=== PATIENT | male | born 1995 | race Caucasian/White ===

== ENCOUNTER 2022-12-04 09:27 | Emergency (ER) | payer OTHER ==
[2022-12-04 09:32] VITALS: TEMP 98.1
--- NOTE | 2022-12-04 09:49 | ED ---
Lower Extremity Injury HPI - General Chief Complaint: Extremity Injury, Lower Stated Complaint: R foot injury Time Seen by Provider: 12/04/22 09:34 Source: patient, RN notes reviewed, old records reviewed Mode of arrival: ambulatory Limitations: no limitations - History of Present Illness Initial Comments: Nontoxic-appearing 27-year-old male presents to the emergency room with complaints of right foot pain for the past 2 months. Patient states that he kicked a metal pole playing ball with his kids 2 months ago. He has had pain since. He has not sought treatment until today. States increased pain with walking or standing at work. No medical history. MD Complaint: foot injury (right) -: month(s) (2) Severity scale (1-10): 8 Worsens With: weight bearing, other (walking) - Related Data Allergies Allergy/AdvReac Type Severity Reaction Status Date / Time No Known Allergies Allergy Verified 12/04/22 09:30 Review of Systems ROS Statement: Those systems with pertinent positive or pertinent negative responses have been documented in the HPI. ROS Other: All systems not noted in ROS Statement are negative. Past Medical History Past Medical History: No Reported History History of Any Multi-Drug Resistant Organisms: None Reported Past Surgical History: No Surgical Hx Reported Past Psychological History: No Psychological Hx Reported Smoking Status: Never smoker Past Alcohol Use History: Rare Past Drug Use History: None Reported General Exam Limitations: no limitations General appearance: alert, in no apparent distress Head exam: Present: atraumatic Eye exam: Present: normal appearance. Absent: scleral icterus, conjunctival injection, periorbital swelling Respiratory exam: Absent: respiratory distress, accessory muscle use Cardiovascular Exam: Present: regular rate Right Ankle exam: Present: full ROM. Absent: tenderness, swelling Foot/Toe exam: Present: full ROM, tenderness (Base of second and third digits midfoot). Absent: swelling, abrasion, laceration, ecchymosis, deformity, crepitus, dislocation, erythema, calcaneal tenderness, tenderness at base of 5th metatarsal Neurovascular tendon exam: Present: no vascular compromise. Absent: abnormal cap refill, extremity cold to touch, pallor, foot drop Neurological exam: Present: alert, oriented X3 Psychiatric exam: Present: normal affect, normal mood Skin exam: Present: warm, dry, normal color. Absent: cyanosis, diaphoretic, petechiae, pallor Course Vital Signs 12/04/22 12/04/22 09:30 10:17 Temperature 98.1 F Pulse Rate 79 75 Respiratory 16 18 Rate Blood Pressure 143/86 109/65 O2 Sat by Pulse 96 98 Oximetry Medical Decision Making - Medical Decision Making Was pt. sent in by a medical professional or institution (ALFREDO Saenz, WATER SAFETY TEACHER, urgent care, hospital, or residential...) When possible be specific @ -No Did you speak to anyone other than the patient for history (EMS, parent, family, police, friend...)? What history was obtained from this source @ -No Did you review nursing and triage notes (agree or disagree)? Why? @ -I reviewed and agree with nursing and triage notes Were old charts reviewed (outside hosp., previous admission, EMS record, old EKG, old radiological studies, urgent care reports/EKG's, residential records)? Report findings @ -No old charts were reviewed Differential Diagnosis (chest pain, altered mental status, abdominal pain women, abdominal pain men, vaginal bleeding, weakness, fever, dyspnea, syncope, headache, dizziness, GI bleed, back pain, seizure, CVA, palpatations, mental health, musculoskeletal)? @ -Contusion, fracture, cellulitis, foreign body EKG interpreted by me (3pts min.). @ -n/a X-rays interpreted by me (1pt min.). @ -yes X-ray of the right foot interpreted by me shows no evidence of acute fracture or dislocation. CT interpreted by me (1pt min.). @ -None done U/S interpreted by me (1pt. min.). @ -None done What testing was considered but not performed or refused? (CT, X-rays, U/S, labs)? Why? @ -None What meds were considered but not given or refused? Why? @ -Offered Tylenol and or Motrin and declined Did you discuss the management of the patient with other professionals (professionals i.e. ALFREDO Saenz, WATER SAFETY TEACHER, lab, RT, psych nurse, criminal justice social worker, irrigator head, teacher, quarantine officer, social work case manager)? Give summary @ -No Was smoking cessation discussed for >3mins.? @ -No Was critical care preformed (if so, how long)? @ -No Were there social determinants of health that impacted care today? How? (Homelessness, low income, unemployed, alcoholism, drug addiction, transportation, low edu. Level, literacy, decrease access to med. care, detention, rehab)? @ -No Was there de-escalation of care discussed even if they declined (Discuss DNR or withdrawal of care, Hospice)? DNR status @ -No What co-morbidities impacted this encounter? (DM, HTN, Smoking, COPD, CAD, Cancer, CVA, ARF, Chemo, Hep., AIDS, mental health diagnosis, sleep apnea, morbid obesity)? @ -None Was patient admitted / discharged? Hospital course, mention meds given and route, prescriptions, significant lab abnormalities, going to OR and other pertinent info. @ -Discharged Nontoxic-appearing 27-year-old male presents to the emergency room with complaints of right foot pain for the past 2 months. Patient states that he kicked a metal pole playing ball with his kids 2 months ago. He has had pain since. He has not sought treatment until today. States increased pain with walking or standing at work. No medical history. On physical exam there is no evidence of swelling or bruising. No deformities. Has been able to ambulate but states has increased pain with prolonged standing or walking. Radiologist's interpretation no acute or chronic fracture noted. Patient was offered Tylenol Motrin and declined. Instructed to follow-up with his primary care doctor next week. Return to the emergency room with any new or concerning symptoms. Case discussed with Dr. Friedman Undiagnosed new problem with uncertain prognosis? @ -No Drug Therapy requiring intensive monitoring for toxicity (Heparin, Nitro, Insulin, Cardizem)? @ -No Were any procedures done? @ -No Diagnosis/symptom? @ -Foot contusion Acute, or Chronic, or Acute on Chronic? @ -Acute Uncomplicated (without systemic symptoms) or Complicated (systemic symptoms)? @ -default Side effects of treatment? @ -No Exacerbation, Progression, or Severe Exacerbation? @ -No Poses a threat to life or bodily function? How? (Chest pain, [place], [place], pneumonia, PE, COPD, DKA, ARF, appy, cholecystitis, CVA, Diverticulitis, Homicidal, Suicidal, threat to staff... and all critical care pts) @ -No Disposition Clinical Impression: Foot pain, right Disposition: HOME SELF-CARE Condition: Good Instructions (If sedation given, give patient instructions): Foot Contusion (ED) Additional Instructions: Tylenol and/or Motrin as needed for any pain or discomfort. Wear hard soled shoes to prevent flexion which may improve your pain. Follow-up with podiatry or your primary care doctor for continuation of care. Is patient prescribed a controlled substance at d/c from ED?: No Referrals: Nonstaff,Physician [REFERRING] - 1-2 days Felix Vaughn DPM [STAFF PHYSICIAN] - 1-2 days
--- NOTE | 2022-12-04 10:00 | XR ---
EXAMINATION TYPE: XR foot complete RT DATE OF EXAM: 12/04/2022 9:56 AM INDICATION: Patient age:Male; 27 years old; Reason for study: kicked pole 2 months ago increased pain; COMPARISON: None TECHNIQUE: The right foot was examined in the AP, oblique, and lateral projections. FINDINGS: No evidence of any acute osseous pathology. No evidence of soft tissue swelling. Joints are preserve d. IMPRESSION: No evidence of acute fracture or chronic fracture.
[2022-12-04 10:18] VITALS: BP 109/65; PULSE 75; RESP 18
== END 2022-12-04 10:18 | disposition home or self-care (01) ==
LOC: EC 09:27
DX: M79.671 Pain in right foot (principal)
CPT/HCPCS: 99283